=== PATIENT | female | born 1960 | race Caucasian/White ===

== ENCOUNTER 2017-01-10 08:53 | Emergency (ER) | payer BC ==
[2017-01-10] MEDS ORDERED: Rocephin 1000 MG INJ IM ONE (09:03)
[2017-01-10] MEDS ORDERED: Rocephin 1000 MG INJ ONE (09:08)
--- NOTE | 2017-01-10 09:08 | ERPHSYRPT ---
- History of Present Illness Time Seen by Provider: 01/10/17 09:04 Source: patient Physician History: c/o sore throat for 2-3 days, no fever, no difficulty in swallowing, no chest pain or shortness of breath Timing/Duration: day(s) (2-3 days) Cough Quality/Degree: no cough Possible Cause: no prior episodes Associated Symptoms: denies symptoms International travel in last 2 weeks: No Allergies/Adverse Reactions: No Known Drug Allergies Allergy (Unverified 01/03/13 11:18) Home Medications: Amitriptyline HCl 25 mg [Elavil 25 mg] 25 mg PO HS 01/31/13 [History] Estrogen,Con/M-Progest Acet [Prempro 0.45-1.5 mg Tablet] 1 each PO DAILY [History] Pravastatin Sodium 40 mg PO HS 01/31/13 [History] Sertraline HCl 100 mg [Zoloft 100 MG] 100 mg PO DAILY 01/31/13 [History] Tramadol HCl 50 mg [Ultram 50 mg] 100 mg PO BID 01/31/13 [History] Hx Influenza Vaccination/Date Given: No Hx Pneumococcal Vaccination/Date Given: No - Review of Systems Constitutional: No Symptoms Eyes: No Symptoms Ears, Nose, & Throat: Throat Pain Respiratory: No Symptoms Cardiac: No Symptoms Abdominal/Gastrointestinal: No Symptoms Genitourinary Symptoms: No Symptoms Musculoskeletal: No Symptoms - Past Medical History Pertinent Past Medical History: Yes Neurological History: Migraines ENT History: No Pertinent History Cardiac History: High Cholesterol Respiratory History: No Pertinent History Endocrine Medical History: No Pertinent History Musculoskeletal History: No Pertinent History GI Medical History: No Pertinent History History: No Pertinent History Psycho-Social History: Anxiety, Depression Female Reproductive Disorders: No Pertinent History Other Medical History: rt shoulder pain - Past Surgical History Past Surgical History: Yes Neuro Surgical History: No Pertinent History Cardiac: No Pertinent History Respiratory: No Pertinent History Gastrointestinal: No Pertinent History Genitourinary: No Pertinent History Musculoskeletal: Orthopedic Surgery Female Surgical History: No Pertinent History Other Surgical History: rt knee cap repaired rt elbow-lipoma lt side lipoma - Social History Smoking Status: Never smoker Exposure to second hand smoke: No Drug Use: none - Physical Exam General Appearance: no apparent distress, alert Eye Exam: PERRL/EOMI Ears, Nose, Throat Exam: normal ENT inspection, pharyngeal erythema Neck Exam: normal inspection Respiratory Exam: normal breath sounds Cardiovascular Exam: regular rate/rhythm - Course Nursing assessment & vital signs reviewed: Yes Ordered Tests: Medication Summary Generic Name Dose Route Start Last Admin Trade Name Carmen PRN Reason Stop Dose Admin Ceftriaxone Sodium 1,000 mg 01/10/17 09:03 Rocephin 1000 Mg Inj IM 01/10/17 09:04 STAT ONE - Progress Progress: unchanged Blood Culture(s) Obtained: No Antibiotics given: No Counseled pt/family regarding: diagnosis, need for follow-up - Departure Time of Disposition: :07 Departure Disposition: Home Clinical Impression: Strep pharyngitis Condition: Stable Critical Care Time: No Referrals: MARCO A QUINTANILLA [Primary Care Provider] - Instructions: Strep Throat Additional Instructions: SORE THROAT 1. If you are prescribed antibiotics, you should finish the entire prescription as directed. 2. Many sore throats are caused by viruses and antibiotics will not help. 3. Acetaminophen or Ibuprofen as directed for fever or discomfort. 4. Cool liquids may help the pain of sore throat. Prescriptions: Amoxicillin 500 mg PO TID #30 tablet
[2017-01-10] MEDS ORDERED: XYLOCAINE 1% HCL 20 ML MDV ONE (09:10)
[2017-01-10 09:37] VITALS: BP 108/82; PULSE 111; O2SAT 100
== END 2017-01-10 09:37 | disposition home or self-care (01) ==
LOC: ED 08:53
DX: J02.0 Streptococcal pharyngitis (principal)
CPT/HCPCS: 96372; 99284; J0696